=== PATIENT | female | born 1960 | race Caucasian/White ===

== ENCOUNTER 2018-06-19 07:38 | Emergency (ER) | payer BC ==
[~2018-06-19] VITALS: Ht 160 cm; Wt 81.7 kg
[~2018-06-19 07:38] MED LIST: CEPH500 PO; CLOBET30L TP; CYCL10 PO; HYDACE5 PO; HYDACE7.5 PO; HYDR10; IBUP600 PO; NAPR500 PO; OXYC10TA19 PO; OXYC5 PO; PRED10 PO; RXCYCL10 PO; RXHYDACE PO; SULFA
[2018-06-19] MEDS ORDERED: XARELTO15 MG (07:58)
[2018-06-19] MEDS ORDERED: POTCHL10ER (07:58)
[2018-06-19] MEDS ORDERED: FURO20 (07:58)
[2018-06-19] MEDS ORDERED: Veetids 500500 MG PO (08:16)
== END 2018-06-19 08:29 | disposition home or self-care (01) ==
LOC: ER 07:38
DX: J02.0 Streptococcal pharyngitis (principal)
CPT/HCPCS: 87430; 99282

== ENCOUNTER → 2018-07-23 | Outpatient (CLI) | payer BC ==
[~2018-07-23] MED LIST changes: +FURO20; +Norco 5-325 Ta1 EACH PO; +POTCHL10ER; +Veetids 500500 MG PO; +XARELTO15 MG PO
[2018-07-23 19:07] LABS: BASOPHILS ABSOLUTE AUTO 0.05 K/mm3 (0.00-0.23); BASOPHILS PERCENT AUTO 1 % (0-2); EOSINOPHILS ABSOLUTE AUTO 0.13 K/mm3 (0.00-0.68); EOSINOPHILS PERCENT AUTO 2 % (0-6); Hematocrit 40.1 % (33.0-51.0); Hemoglobin 12.9 g/dL (11.5-16.0); IMMATURE GRAN ABSOLUTE AUTO 0.02 K/mm3 (0.00-0.10); IMMATURE GRAN PERCENT AUTO 0 % (0-1); LYMPHOCYTES ABSOLUTE AUTO 2.23 K/mm3 (0.84-5.20); LYMPHOCYTES PERCENT AUTO 36 % (21-46); MONOCYTES ABSOLUTE AUTO 0.47 K/mm3 (0.16-1.47); MONOCYTES PERCENT AUTO 8 % (4-13); Mean Corpuscular HGB 28.2 pg (26.0-34.0); Mean Corpuscular HGB Conc 32.2 g/dL (31.5-36.5); Mean Corpuscular Volume 88 fL (80-100); Mean Platelet Volume 9.3 fL (9.1-12.4); NEUTROPHILS ABSOLUTE AUTO 3.26 K/mm3 (1.96-9.15); NEUTROPHILS PERCENT AUTO 53 % (41-73); Platelet Count 335 K/mm3 (150-400); RDW Coefficient Variation 13.9 % (11.7-14.2); RDW Standard Deviation 44.6 fL (35.1-46.3); Red Blood Cell Count 4.57 M/mm3 (3.80-5.20); White Blood Cell Count 6.16 K/mm3 (4.00-11.30)
[2018-07-23 19:17] LABS: Bun/Creatinine Ratio 17.3 (12.0-20.0); Calcium, Blood 9.5 mg/dL (8.5-10.1); Creatinine, Blood 0.98 mg/dL (0.40-1.00); Uric Acid, Blood 3.9 mg/dL (2.6-6.0)
== END ==
LOC: LAB EV 19:03 → LAB SHORT 19:03
PROVIDERS: Nurse Practitioner
DX: M10.9 Gout, unspecified (principal)
CPT/HCPCS: 80048; 84550; 85025

== ENCOUNTER 2018-07-29 21:11 | Emergency (ER) | payer BC ==
[~2018-07-29] VITALS: Ht 160 cm; Wt 68.0 kg
[~2018-07-29 21:11] MED LIST changes: -Norco 5-325 Ta1 EACH PO
[2018-07-29] MEDS ORDERED: PRED10 PO (23:04)
[2018-07-29] MEDS ORDERED: Norco 5-325 Ta1 EACH PO (23:37)
== END 2018-07-29 23:51 | disposition home or self-care (01) ==
LOC: ER 21:11
DX: M10.9 Gout, unspecified (principal); Z79.899 Other long term (current) drug therapy
CPT/HCPCS: 99283

== ENCOUNTER → 2019-03-28 | Outpatient (CLI) | payer BC ==
[~2019-03-28] MED LIST changes: +Norco 5-325 Ta1 EACH PO
== END | disposition home or self-care (01) ==
LOC: LAB SHORT 17:42 → LAB EV 17:42
DX: Z09 Encounter for follow-up examination after completed treatment for conditions other than malignant neoplasm (principal); Z86.718 Personal history of other venous thrombosis and embolism
CPT/HCPCS: 36416; 85610

== ENCOUNTER 2019-04-17 23:05 | Emergency (ER) | payer BC ==
[~2019-04-17 23:05] MED LIST changes: -FURO20; +FURO20 PO
== END 2019-04-18 00:07 | disposition left against medical advice (07) ==
LOC: ER 23:05
DX: Z53.21 Procedure and treatment not carried out due to patient leaving prior to being seen by health care provider (principal)

== ENCOUNTER 2019-05-08 21:24 | Emergency (ER) | payer BC ==
[~2019-05-08] VITALS: Ht 162.6 cm; Wt 65.8 kg
[2019-05-08] MEDS ORDERED: WARF3 PO (21:57)
[2019-05-08] MEDS ORDERED: POTCHL10ER PO (21:58)
[2019-05-08] MEDS ORDERED: CYCL10 (21:58)
[2019-05-08] MEDS ORDERED: LIDO700A20 TOP (22:55)
== END 2019-05-08 23:16 | disposition home or self-care (01) ==
LOC: ER 21:24
DX: M53.3 Sacrococcygeal disorders, not elsewhere classified (principal); Z79.899 Other long term (current) drug therapy; Z79.01 Long term (current) use of anticoagulants
CPT/HCPCS: 96372; 99283-25; J1100; J3010

== ENCOUNTER 2020-05-18 00:02 | Emergency (ER) | payer BC ==
[~2020-05-18] VITALS: Ht 160 cm; Wt 66.2 kg
[~2020-05-18 00:02] MED LIST changes: +CYCL10; +LIDO700A20 TOP; +POTCHL10ER PO; +Prednisone20 MG PO; +Robaxin-750750 MG PO; +WARF3 PO
[2020-05-18] MEDS ORDERED: NEURONTIN300 MG PO (00:49)
[2020-05-18] MEDS ORDERED: GABA100 PO (00:49)
[2020-05-18] MEDS ORDERED: XARELTO20 M1 PO (00:50)
== END 2020-05-18 02:58 | disposition home or self-care (01) ==
LOC: ER 00:02
DX: M70.61 Trochanteric bursitis, right hip (principal); M54.9 Dorsalgia, unspecified; G89.29 Other chronic pain; Z79.899 Other long term (current) drug therapy; Z87.891 Personal history of nicotine dependence
CPT/HCPCS: 20605; 99283-25; J1030

== ENCOUNTER → 2022-04-05 | Outpatient (CLI) | payer BC ==
[~2022-04-05] MED LIST changes: +GABA100 PO; +NEURONTIN300 MG PO; +XARELTO20 M1 PO
[2022-04-05 16:03] LABS: BASOPHILS ABSOLUTE AUTO 0.04 K/mm3 (0.00-0.23); BASOPHILS PERCENT AUTO 1 % (0-2); EOSINOPHILS ABSOLUTE AUTO 0.16 K/mm3 (0.00-0.68); EOSINOPHILS PERCENT AUTO 3 % (0-6); Hematocrit 37.3 % (33.0-51.0); Hemoglobin 12.2 g/dL (11.5-16.0); IMMATURE GRAN ABSOLUTE AUTO 0.01 K/mm3 (0.00-0.10); IMMATURE GRAN PERCENT AUTO 0 % (0-1); LYMPHOCYTES PERCENT AUTO 38 % (21-46); MONOCYTES PERCENT AUTO 8 % (4-13); Mean Corpuscular HGB Conc 32.7 g/dL (31.5-36.5); Mean Corpuscular Volume 89 fL (80-100); Mean Platelet Volume 9.1 fL (9.1-12.4); NEUTROPHILS PERCENT AUTO 51 % (41-73); Platelet Count 350 K/mm3 (150-400); RDW Coefficient Variation 14.6 % (11.7-14.2); White Blood Cell Count 6.51 K/mm3 (4.00-11.30)
[2022-04-05 16:10] LABS: Bun/Creatinine Ratio 19.5 (12.0-20.0); Calcium, Blood 8.9 mg/dL (8.5-10.1); Creatinine, Blood 0.87 mg/dL (0.40-1.00); Potassium, Blood 3.7 mmol/L (3.5-5.5)
== END ==
LOC: LAB SHORT 15:59
PROVIDERS: Physician Assistant Surgical
DX: R60.0 Localized edema (principal)
CPT/HCPCS: 80048; 85025